=== PATIENT | female | born 1985 | race Caucasian/White ===

== ENCOUNTER → 2019-04-12 16:34 | Outpatient (CLI) | payer OTHER, SELFPAY ==
[2017-06-21 22:37] VITALS: BMI 28.0
[2019-04-15 12:08] LABS: Age Gdln ACOG Testing 30-65 (.)
[2019-04-15 17:00] LABS: HPV APTIMA, High Risk Negative (Negative); HPV Reflexed? YES, CHARGE PATIENT
== END ==
PROVIDERS: Referring Provider Obstetrics & Gynecology; Visit Provider Obstetrics & Gynecology
DX: Z12.4 Encounter for screening for malignant neoplasm of cervix (principal)
CPT/HCPCS: 87624; 88175; G0145

== ENCOUNTER → 2020-07-31 | Outpatient (CLI) | payer OTHER, SELFPAY ==
[2017-06-21 22:37] VITALS: BMI 28.0
[2020-08-04 03:06] LABS: Chlamydia By Nucleic Acid AMP Negative (Negative)
[2020-08-04 09:18] LABS: Gonococcus By Nucleic Acid AMP Negative (Negative)
== END | disposition home or self-care (01) ==
LOC: LABSPEC 14:34
PROVIDERS: Visit Provider Student in an Organized Health Care Education/Training Program
DX: Z32.01 Encounter for pregnancy test, result positive (principal)
CPT/HCPCS: 87491; 87591

== ENCOUNTER → 2020-08-10 14:03 | Outpatient (CLI) | payer OTHER, SELFPAY ==
[2017-06-21 22:37] VITALS: BMI 28.0
[2020-08-10 17:19] LABS: Absolute Lymphocyte Count 1.43 X10^3/uL (0.83-4.51); Basophil# 0.02 X10^3/uL; Basophil% 0.3 % (0-1); Eosinophil# 0.18 X10^3/uL; Eosinophils% 2.3 % (0-5); Hematocrit 41.1 % (37-47); Hemoglobin 13.2 g/dL (12.0-15.0); Lymphocyte # 1.43 X10^3/ul (4.0); Lymphocyte % 17.9 % (19-41); Mean Corp Hgb Conc 32.1 g/dL (32-36); Mean Corpuscular Hgb 28.8 pg (27.0-32.0); Mean Corpuscular Volume 89.5 fL (81-99); Mean Platelet Vol. 10.5 fl (6.2-12.0); Monocyte# 0.39 X10^3/uL; Monocyte% 4.9 % (0-10); NRBC Flagged by Analyzer 0 % (0-5); Neutrophil # 5.96 X10^3/uL (2.7-7.7); Neutrophil % 74.3 % (47-70); Platelet Count 269 K/mm3 (150-450); RBC Distribution Width CV 11.9 % (11.6-14.6); RBC Distribution Width SD 38.7 fl (35.1-43.9); Red Blood Count 4.59 M/mm3 (4.2-5.4)
[2020-08-13 09:14] LABS: HIV - WCH Non-Reactive (Nonreactive); Hepatitis B Surface Antigen Non-Reactive (Nonreactive); Hepatitis C Antibody Non-Reactive (Nonreactive); Rubella IgG Reactive (Nonreactive); Syphilis Antibodies Non-reactive
== END ==
PROVIDERS: Visit Provider Student in an Organized Health Care Education/Training Program
DX: Z34.81 Encounter for supervision of other normal pregnancy, first trimester (principal)
CPT/HCPCS: 36415; 85025; 86703; 86762; 86803; 87086; 87088; 87340

== ENCOUNTER → 2021-01-28 16:40 | Outpatient (CLI) | payer OTHER, SELFPAY ==
[2021-01-28 17:21] LABS: Absolute Lymphocyte Count 1.49 X10^3/uL (0.83-4.51); Absolute Neutrophil Count 7.8 X10^3/uL (2.0-7.7); Basophil# 0.02 X10^3/uL; Basophil% 0.2 % (0-1); Eosinophil# 0.13 X10^3/uL; Eosinophils% 1.3 % (0-5); Hematocrit 39.9 % (37-47); Hemoglobin 13.5 g/dL (12.0-15.0); Lymphocyte # 1.49 X10^3/ul (0.83-4.51); Lymphocyte % 14.8 % (19-41); Mean Corp Hgb Conc 33.8 g/dL (32-36); Mean Corpuscular Hgb 29.4 pg (27.0-32.0); Mean Corpuscular Volume 86.9 fL (81-99); Mean Platelet Vol. 9.6 fl (6.2-12.0); Monocyte# 0.57 X10^3/uL; Monocyte% 5.7 % (0-10); NRBC Flagged by Analyzer 0 % (0-5); Neutrophil # 7.82 X10^3/uL (2.7-7.7); Neutrophil % 77.5 % (47-70); Platelet Count 275 K/mm3 (150-450); RBC Distribution Width SD 38.5 fl (35.1-43.9); Red Blood Count 4.59 M/mm3 (4.2-5.4); White Blood Count 10.1 K/mm3 (4.4-11.0)
[2021-01-29 08:47] LABS: HIV - WCH Non-Reactive (Nonreactive); Hepatitis B Surface Antigen Non-Reactive (Nonreactive); Hepatitis C Antibody Non-Reactive (Nonreactive); Rubella IgG Reactive (Nonreactive); Syphilis Antibodies Non-reactive
[2021-01-31 03:07] LABS: Chlamydia By Nucleic Acid AMP Negative (Negative)
[2021-01-31 09:01] LABS: Gonococcus By Nucleic Acid AMP Negative (Negative)
== END ==
PROVIDERS: Visit Provider Obstetrics & Gynecology
DX: Z32.01 Encounter for pregnancy test, result positive (principal)
CPT/HCPCS: 36415; 85025; 86703; 86762; 86780; 86803; 87077; 87086; 87088; 87340; 87491; 87591

== ENCOUNTER 2021-02-28 09:51 | Emergency (ER) | payer OTHER, SELFPAY ==
[2021-02-28 09:52] VITALS: BP 128/89; PULSE 85; RESP 16; TEMP 36.7; O2SAT 98; BMI 22.8
[2021-02-28 09:55] VITALS: BP 128/89; PULSE 85; RESP 16; TEMP 36.7; O2SAT 98
--- NOTE | 2021-02-28 10:02 | EKG12_ITS ---
Test Reason : CHEST PAIN Blood Pressure : / mmHG Vent. Rate : 081 BPM Atrial Rate : 081 BPM P-R Int : 138 ms QRS Dur : 092 ms QT Int : 362 ms P-R-T Axes : 037 054 022 degrees QTc Int : 420 ms Normal sinus rhythm Normal ECG Confirmed by SALBADOR MONROY, ADITI ([id number]), deputy editor in chief JASPAL COLE ([id number]) on 03/01/2021 10:21:34 A M Referred By: AUNDREA Confirmed By:ULYSSES SIU MD
--- NOTE | 2021-02-28 10:07 | EDS_ITS ---
HPI History of Present Illness Chief Complaint: Chest Pain Informant: patient Onset/Context/Timing Onset: Days Activity at onset: gradual Timing: Intermittent Quality: Positive for Aching Location: Right Parasternal and Left Parasternal Current Severity: Mild Maximum Severity: Mild Worsened By: Nothing Relieved By: Nothing Narrative Narrative: 36-year-old female with factor V Leiden past medical history but is never had a DVT or PE. Currently 3 months due date September 08, 2021. She is Ab1 with a being a miscarriage. She is recently been Covid positive. Has been complaining of chest pain and dizziness. One episode of nausea vomiting last night no diarrhea. No fever no chills. No dysuria. No hemoptysis. Prior Similar Symptoms: No Recent Illness/Hospitalization: No CVD Risk Factors: Negative for Hypertension, Diabetes, Hypercholesterolemia, Family History 1' </=55 and Smoking PE Risk Factors: Negative for Recent Travel/Surgery, Recent Immobilization, Prior DVT or PE, Cancer and OCP + Smoking + >/=35 TAD Risk Factors: Negative for Marfan's Syndrome and Hypertension PFSH PFSH Medical History no medical history Home Medications vit no.[id number] [ One Daily] 1 ea PO DAILY 08/03/15 [History Last Taken 1 Day Ago ~06/20/17] aspirin [Adult Low Dose Aspirin] 81 mg PO DAILY 12/10/15 [History Last Taken 1 Week Ago ~06/14/17] acetaminophen [Tylenol] 325 mg PO Q6H PRN PRN 12/11/15 [History Last Taken 12/10/15 19:00] ibuprofen 800 mg PO TID PRN PRN #30 tab 06/22/17 [Rx Last Taken Unknown] Allergy/AdvReac Type Severity Reaction Status Date / Time No Known Allergies Allergy Verified 02/28/21 09:56 Social History Smoking Status: Never smoker ROS ROS ED ROS Narrative Nausea vomiting x1. Chest pain. Review of Systems ROS Unobtainable: Denies due to encephalopathy Constitutional Constitutional ED: Denies chills or fever(s) Eyes Eyes: Denies none ENT ENT ED: Denies ear pain or sore throat Cardiovascular Cardiovascular: Reports chest pain; Denies palpitations or racing heartbeat Respiratory/Chest Respiratory/Chest: Reports cough; Denies dyspnea Gastrointestinal Gastrointestinal: Reports nausea and vomiting; Denies abdominal pain or diarrhea Genitourinary Genitourinary ED: Denies dysuria or hematuria Musculoskeletal Musculoskeletal: Denies myalgias Integumentary Denies rash Neurologic Neurologic: Denies headache(s) Psychiatric Psychiatric: Denies depression Endocrine Endocrinology: Denies polyuria Hematologic/Lymphatic Hematologic/Lymphatic: Denies easy bruising Allergic/Immunologic Allergic/Immunologic ED: Denies urticaria EXAM Physical Exam Narrative Exam Narrative: 36-year-old female no acute distress vital signs stable afebrile. Pulse ox 98% on room air no signs hypoxia. Exam benign. Lungs are clear to auscultation. Heart regular rhythm no murmur. Abdomen soft nontender. Moving all 4 extremities. Calves nontender without edema or cords. Const Vital Signs: 02/28/21 09:52 02/28/21 09:55 02/28/21 10:33 Temperature 98.1 F 98.1 F Temperature Source Temporal Temporal Pulse Rate 85 85 Respiratory Rate 16 16 Respiratory Effort Normal Non-Labored Blood Pressure 128/89 H 128/89 H Blood Pressure Mean 102 102 Pulse Ox 98 98 Oxygen Delivery Method Room Air Room Air 02/28/21 11:23 Temperature 98.3 F Temperature Source Temporal Pulse Rate 69 Respiratory Rate 14 Respiratory Effort Blood Pressure 106/72 Blood Pressure Mean 83 Pulse Ox 97 Oxygen Delivery Method Room Air Positive well nourished and well developed; Negative for obese, cachectic, contractures or unkempt General Appearance ED: well developed and NAD; Negative for unkempt, cachectic or contractures Nutritional Appearance: Negative for cachectic or obese HEENT Reports moist mucous membranes normocephalic and atraumatic; Negative for trauma or tenderness Eyes PERRL and EOMs intact bilaterally Neck no lymphadenopathy, supple and no JVD General: Negative for tenderness Chest Wall inspection of chest normal and palpation of chest normal Resp normal respiratory effort and clear to auscultation bilaterally Effort and Inspection: respiratory distress Auscultation: Negative for rales, rhonchi or wheezes Cardio regular rate, regular rhythm, S1 normal heart sound and S2 normal heart sound Rate: Negative for tachycardic GI normal to inspection, nondistended, normoactive bowel sounds, soft to palpation and non-tender; Negative for no masses Back/Spine no CVA tenderness and no thoracic nor lumbar tenderness General Back: Negative for CVA tenderness Extremity normal to inspection General Extremety ED: Negative for edema, pulses abnormal or tenderness General Extremity: Negative for edema or pulses abnormal Neuro oriented x3 and CN's II-XII intact bilaterally Sensorium / Orientation: awake, alert, oriented to person, oriented to place and oriented to time Motor Exam: strength 5/5 throughout Psych mental status grossly normal Appearance: Negative for unkempt Attitude: No agitated Mood & Affect: Negative for depressed, anxious or tearful Skin no rashes or lesions noted and no wounds Heart Score History: Slightly/Non-Suspicious ECG: Normal Age: </= 45 years Risk Factors: No Risk Factors Troponin: </= Normal Limit Score: 0 MDM MDM MDM Narrative Medical decision making narrative: Young female, Covid positive and factor V Leiden history currently not on anticoagulation with diffuse chest pain. D-dimer and lab work-up. EKG is unremarkable. Repeat exam patient is doing well at 1140 and will be discharged home. I think her symptoms are primarily from her Covid. Lab Data Attestation: I reviewed the patient's lab results. Lab results narrative: CBC shows a white count of 5 hemoglobin 13. D-dimer is - 0.39 electrolytes show a gap of 5 normal creatinine. Labs: Laboratory Results - last 24 hr 02/28/21 02/28/21 02/28/21 10:30 10:30 10:30 WBC 5.6 RBC 4.30 Hgb 13.0 Hct 37.0 MCV 86.0 MCH 30.2 MCHC 35.1 RDW Std Deviation 37.8 RDW Coeff of Aldo 12.1 Plt Count 189 MPV 9.4 Immature Gran % (Auto) 0.200 Neut % (Auto) 72.7 H Lymph % (Auto) 20.1 [place] % (Auto) 5.9 Eos % (Auto) 0.9 Baso % (Auto) 0.2 Absolute Neuts (auto) 4.1 Absolute Lymphs (auto) 1.12 Nucleated RBC % 0 D-Dimer Quant (PE/DVT) 0.39 Sodium 137 Potassium 3.5 Chloride 109 H Carbon Dioxide 23.0 Anion Gap 5 BUN 8 Creatinine 0.42 L Estim Creat Clear Calc 197.24 Est GFR (MDRD) Af Amer 222 Est GFR (MDRD) Non-Af 184 BUN/Creatinine Ratio 19.0 Glucose 106 Calcium 8.5 Radiography Chest X-Ray - ED: 1 View, Read by ED Physician, Read by Radiologist, Normal, Heart, Lungs, Mediastinum, Bony Structures and No Acute Disease Diagnostic Testing: Radiology Impression Chest X-Ray 02/28/21 10:15 IMPRESSION: Normal x-ray examination of the chest. Electronically Signed: Damon Cortes MD at 10:48 EDT , Service support , Portable chest x-ray interpreted by myself and the radiologist as normal. Normal cardiac silhouette mediastinum. Rhythm Strip Rhythm Strip: Sinus Rhythm Rate: 81 Ectopy: None EKG Initial EKG: Attestation: I personally reviewed and interpreted this EKG as follows: Interpretation: Sinus Rhythm and No Acute Injury Pattern Comments: Normal sinus rhythm rate of 81 no acute signs of MA or ischemia. Discharge Plan Triage Chief Complaint: Chest Pain ED Provider: Enoch Vallecillo Dx/Rx/DC Orders Clinical Impression: COVID-19 Instructions: Human Coronaviruses Prescriptions: No Action vit no.[id number] [ One Daily] 1 EACH tablet 1 ea PO DAILY RF: 0 aspirin [Adult Low Dose Aspirin] 81 MG Tablet.Dr 81 mg PO DAILY RF: 0 acetaminophen [Tylenol] 325 MG tablet 325 mg PO Q6H PRN PRN (Reason: Pain) RF: 0 ibuprofen 800 MG tablet 800 mg PO TID PRN PRN (Reason: pain or cramping) Qty: 30 RF: 1 Primary Care Provider: Care Physician,No Primary Referrals: Pepe Webster MD [STAFF PHYSICIAN] - Keep Franky appointment Care Physician,No Primary [Primary Care Provider] - Activity Restrictions/Additional Instructions: Tylenol for pain. Plenty of fluids and rest. Make sure you follow-up with your DIRECTOR OF ACQUISITION MARKETING. Make sure you get your anticoagulation Lovenox filled and take it as prescribed. Disposition Disposition: Home, Self Care
--- NOTE | 2021-02-28 10:15 | RAD_ITS ---
STUDY: X-RAY CHEST REASON FOR EXAM: Female, 36 years old. covid . Left-sided chest pain. TECHNIQUE: Single AP portable view of the chest. COMPARISON: None. FINDINGS: The lungs are clear and expanded. There is no demonstrated pleural abnormality. Normal size heart. Normal mediastinum and jim. Normal visualized pulmonary arteries. Normal visualized aortic arch and descending thoracic aorta. Normal visualized thoracic spine. Normal visualized ribs, clavicles, and shoulders. There is no demonstrated abnormality of the visualized soft tissue structures of the upper abdomen. RAD/Chest 1 View (Portable) IMPRESSION: Normal x-ray examination of the chest. Electronically Signed: Damon Cortes MD at 10:48 EDT , Service support ,
[2021-02-28 10:38] LABS: Absolute Lymphocyte Count 1.12 X10^3/uL (0.83-4.51); Absolute Neutrophil Count 4.1 X10^3/uL (2.0-7.7); Basophil# 0.01 X10^3/uL; Basophil% 0.2 % (0-1); Eosinophil# 0.05 X10^3/uL; Eosinophils% 0.9 % (0-5); Lymphocyte # 1.12 X10^3/ul (0.83-4.51); Lymphocyte % 20.1 % (19-41); Mean Corp Hgb Conc 35.1 g/dL (32-36); Mean Corpuscular Hgb 30.2 pg (27.0-32.0); Mean Platelet Vol. 9.4 fl (6.2-12.0); Monocyte# 0.33 X10^3/uL; Monocyte% 5.9 % (0-10); NRBC Flagged by Analyzer 0 % (0-5); Neutrophil # 4.06 X10^3/uL (2.7-7.7); Neutrophil % 72.7 % (47-70); Platelet Count 189 K/mm3 (150-450); RBC Distribution Width CV 12.1 % (11.6-14.6); RBC Distribution Width SD 37.8 fl (35.1-43.9); White Blood Count 5.6 K/mm3 (4.4-11.0)
[2021-02-28 10:52] LABS: Anion Gap 5 (5-15); BUN 8 mg/dL (7-18); Calcium,Total 8.5 mg/dL (8.5-10.1); Chloride 109 mmol/L (98-107); Creatinine, Serum 0.42 mg/dL (0.55-1.02); EST Glomerular Filtration Rate 184 mL/min (>60); Est Glom Filt Rate - Afr Amer 222 mL/min (>60); Estimated Creatinine Clearance 197.24 ml/min; Glucose 106 mg/dL (74-106); Potassium 3.5 mmol/L (3.5-5.1); Sodium Level 137 mmol/L (136-145)
[2021-02-28 11:00] LABS: D-Dimer Quantitative (DVT/PE) 0.39 FEU/ug/m (0.27-0.49)
[2021-02-28 11:23] VITALS: BP 106/72; PULSE 69; RESP 14; TEMP 36.8; O2SAT 97
[2021-02-28 11:50] VITALS: BP 111/67; O2SAT 99
== END 2021-02-28 12:07 | disposition home or self-care (01) ==
PROVIDERS: Emergency Provider Emergency Medicine
DX: O98.519 Other viral diseases complicating pregnancy, unspecified trimester (principal); U07.1 COVID-19; Z3A.00 Weeks of gestation of pregnancy not specified
CPT/HCPCS: 71045; 80048; 85025; 85379; 93005; 99283

== ENCOUNTER → 2021-05-24 10:07 | Outpatient (CLI) | payer OTHER, SELFPAY ==
[2021-05-24 10:50] LABS: Hemoglobin 11.5 g/dL (12.0-15.0); Mean Corp Hgb Conc 32.9 g/dL (32-36); Mean Corpuscular Hgb 30.5 pg (27.0-32.0); Mean Corpuscular Volume 92.8 fL (81-99); Platelet Count 222 K/mm3 (150-450); RBC Distribution Width CV 13.5 % (11.6-14.6); RBC Distribution Width SD 46.5 fl (35.1-43.9); Red Blood Count 3.77 M/mm3 (4.2-5.4); White Blood Count 9.3 K/mm3 (4.4-11.0)
[2021-05-24 10:56] LABS: Glucose Challenge Gest 1H 50g 131 mg/dL (70-140)
== END ==
PROVIDERS: Visit Provider Obstetrics & Gynecology
DX: Z34.82 Encounter for supervision of other normal pregnancy, second trimester (principal)
CPT/HCPCS: 36415; 82950; 85027

== ENCOUNTER 2021-06-18 11:28 | Outpatient (CLI) | payer OTHER, SELFPAY | END 2021-06-18 23:59 | disposition short-term general hospital (02) | LOC: WOBLAB 11:33 | PROVIDERS: Visit Provider Obstetrics & Gynecology | DX: Z67.91 Unspecified blood type, Rh negative (principal) | CPT/HCPCS: 36415; 86850 ==

== ENCOUNTER 2021-08-05 11:00 | Outpatient (CLI) | payer OTHER, SELFPAY | END 2021-08-05 23:59 | disposition home or self-care (01) | LOC: LABSPEC 11:01 | PROVIDERS: Visit Provider Obstetrics & Gynecology | DX: Z36.85 Encounter for antenatal screening for Streptococcus B (principal) | CPT/HCPCS: 87081 ==

== ENCOUNTER 2021-09-12 07:30 | Inpatient (IN) | payer OTHER, SELFPAY ==
[2021-09-12] VITALS (40 sets, daily range): BP systolic 104–155; BP diastolic 63–92; PULSE 65–190; RESP 16; TEMP 36.3–36.8; O2SAT 83–100; BMI 29.6
--- NOTE | 2021-09-12 | PLAC_PTH ---
PATIENT: GAVI BUTT LOC: [facility] U#:[id number] AGE/SX: 36/F ROOM: WP006 RE09/12/[address]: Dr. Pepe Webster MD : 1985 BED: 1 DIS: 09/13/2021 SPEC #: [id number] RECD: 09/12/21 18:03 STATUS: [place] REKristi #: [id number] ASIM: 09/12/21 00:[address]: Pepe Webster DEPT: SURGICAL PATHOLOGY RECD BY: Jace Nuñez ENTERED: 09/13/21 10:36 SP TYPE: PLACENTA OTHR DR: No Primary Care Phys Tissues: Placenta, NOS Procedures: Surgery Specimen Level V HEADER OPERATION: Vaginal delivery PRE-OP DIAGNOSIS: Induction TISSUE SUBMITTED: Placenta MICROSCOPIC DIAGNOSIS Whitt placenta (608 gm): Umbilical cord ? trivascular with no inflammation. Placental membranes - No pathologic change. Placental disc ? remote infarcts, Eladia-Rakesh change and intervillous congestion. AM:imani 09/17/2021 MICROSCOPIC DESCRIPTION Slides are reviewed. GROSS DESCRIPTION SPECIMEN: PLACENTA / CLINICAL INFORMATION: A. Weight: 4.195 kg B. Gestational Age: 41 weeks C. Sex: Female PLACENTAL WEIGHT (POST FIXATION): 608 gm PLACENTAL DIMENSIONS: 17 x 17 x 3 cm PLACENTAL SHAPE: Usual ovoid PLACENTAL WEIGHT FOR GESTATIONAL AGE: Over 99th percentile MEMBRANES - Present A. Insertion: Marginal B. Site of rupture from edge: At edge of placental disc C. Color of membrane: Cotton-obando D. Abnormalities: None UMBILICAL CORD - Present A. Color: Cotton-obando B. Insertion: Eccentric C. Length: 48 cm D. Diameter: 1.2 cm E. Number of vessels: Three F. Abnormalities: None PLACENTAL DISC - Present A. Color of surface: Cotton-obando B. surface abnormalities: None C. Maternal cotyledons: Intact with minimal tears D. Attached retro placental clot: No clot E. Cut surface: Dark red and spongy F. Lesions: Two lesions, one at 10 cm G. Separate clot: Absent SECTIONS SUBMITTED: 1. Umbilical cord ( end notched) 2. Umbilical cord, placental end 3. Membrane roll 4. Placental disc, and maternal surfaces, lesions 5. Placental disc, and maternal surfaces 6. Placental disc, and maternal surfaces AM:imani 09/16/2021 TC:5 CPT: 64134
[2021-09-12 08:18] LABS: Absolute Lymphocyte Count 1.28 X10^3/uL (0.83-4.51); Absolute Neutrophil Count 8.3 X10^3/uL (2.0-7.7); Basophil# 0.02 X10^3/uL; Basophil% 0.2 % (0-1); Eosinophil# 0.09 X10^3/uL; Eosinophils% 0.9 % (0-5); Hematocrit 37.3 % (37-47); Lymphocyte # 1.28 X10^3/ul (0.83-4.51); Lymphocyte % 12.5 % (19-41); Mean Corp Hgb Conc 34.9 g/dL (32-36); Mean Corpuscular Hgb 31.6 pg (27.0-32.0); Mean Corpuscular Volume 90.5 fL (81-99); Mean Platelet Vol. 11.2 fl (6.2-12.0); Monocyte# 0.48 X10^3/uL; Monocyte% 4.7 % (0-10); NRBC Flagged by Analyzer 0 % (0-5); Neutrophil # 8.32 X10^3/uL (2.7-7.7); Platelet Count 186 K/mm3 (150-450); RBC Distribution Width CV 13.2 % (11.6-14.6); RBC Distribution Width SD 43.1 fl (35.1-43.9); Red Blood Count 4.12 M/mm3 (4.2-5.4); White Blood Count 10.3 K/mm3 (4.4-11.0)
[2021-09-12] MEDS: Oxytocin 30 units/NS 500 ml 30 UNITS/500 ML IV.SOLN IV (08:26)
[2021-09-12] MEDS: Lactated Ringers 1,000 ML 50 ML IV (08:27)
--- NOTE | 2021-09-12 13:04 | PCM.HP.BLA ---
History and Physical Date of Admission: 09/12/21 Chief complaint: Induction of labor postdates History present illness: 36-year-old G4, P2 at 41 weeks and 5 days with RACHELLE 08/31/2021 arrives for induction of labor postdates. Denies headache, visual changes, chest pain, shortness of breath, nausea vomiting, right upper quadrant pain. Patient states good movement. is complicated by factor V heterozygous has not been taking Lovenox, Rh- Obstetric history: G1: female G2: male G3: SAB G4: Current Past medical history: Factor V heterozygous Medications: vitamin Past surgical history: D&C Social history: Denies smoking, alcohol use, drug use Review of systems: Besides above pertinent positives a full review of systems was performed and found to be negative Physical exam: Blood pressure 133/86 pulse 67 General: Normal-appearing no acute distress none HEENT: Normocephalic/atraumatic no cervical adenopathy Cardiac/respiratory: No success muscles, nonlabored breathing Abdomen: Soft, nontender, gravid Cervical exam: 360/-3 AROM clear fluid Extremities: No peripheral edema normal peripheral pulses Psych: Normal affect normal demeanor nonpressured speech Labs: White blood cell count 10.3 hemoglobin 13.0 hematocrit 37.3% platelets 186 blood type A- antibody negative Assessment plan: 36-year-old G4, P2 at 41 weeks and 5 days induction of labor postdates Admit labor and delivery 9 CFM GBS negative Pitocin and AROM induction Factor V heterozygous: Patient has refused Lovenox throughout this , will rediscuss for Rh-
[2021-09-12] MEDS: fentaNYL 100 MCG/2 ML Ampul IV (15:05)
[2021-09-12] MEDS: Lactated Ringers 500 ML 999 ML IV (15:32)
[2021-09-12] MEDS: fentaNYL-bupivacaine (epidural) 100 ML BAG EPIDURAL (16:08)
[2021-09-12] MEDS: Oxytocin 30 units/NS 500 ml 30 UNITS/500 ML IV.SOLN 334 UNITS IV (16:55)
--- NOTE | 2021-09-12 17:10 | EX.PCM.OBRPT ---
Vaginal Delivery Findings Description of Procedure: Normal spontaneous delivery of a viable female infant, cephalic. Head and shoulders delivered with ease. Cord cut and clamped x 2. Baby handed off to nursing. Placenta delivered via cord traction and fundal message. No lacerations noted. EBL 300cc APGARs 8/9
[2021-09-12 18:05] LABS: Pathology Specimen OB SEE PATHOLOGY REPORT
--- NOTE | 2021-09-12 19:33 | NURSING ---
Pt epidural cath removed. blue tip intact.
[2021-09-12] MEDS: Acetaminophen 500 MG Tablet 1000 MG PO (21:16)
[2021-09-13 00:10] VITALS: BP 127/74; PULSE 77; RESP 16; TEMP 36.8
[2021-09-13] MEDS: Ibuprofen 600 MG Tablet PO ×2 (02:16→11:38)
[2021-09-13 04:30] VITALS: BP 116/77; PULSE 74; RESP 16; TEMP 36.7
--- NOTE | 2021-09-13 07:27 | PCM.DC ---
Discharge Instructions Diet Discharge Diet: No restrictions Activity Discharge Activity: Return to Normal Activity, May Drive and May Shower May resume sexual activity in: 4-6 weeks Weight Bearing Status: Weight bearing as tolerated Dressing / Incision Call your doctor if your incision/area has: Continuous Slow Oozing and Foul Smelling Discharge Call your doctor if you observe: Fever of 101 or Higher, Shortness of breath and Chest pain Follow Up Care Please Follow Up With: Pepe Webster MD When: 2-week telehealth, 4 to 6 weeks Test Results: Test results from this visit will be discussed in further detail at your follow-up appointment, if applicable. Discharge Plan Admission Admit Date/Time: 09/12/21 07:30 Attending Provider: Pepe Webster Primary Care Provider: Care Physician,Bessy Primary Discharge Orders/Prescriptions Prescriptions: No Action One Daily 1 EACH tablet 1 ea PO DAILY RF: 0 acetaminophen [Tylenol] 325 MG tablet 325 mg PO Q6H PRN PRN (Reason: Pain) RF: 0 ibuprofen 800 MG tablet 800 mg PO TID PRN PRN (Reason: pain or cramping) Qty: 30 RF: 1 Disposition Discharge Orders: Discharge Patient (Routine); Ordered 09/13/21 Ordered By: Dr. Pepe Webster
--- NOTE | 2021-09-13 07:28 | PCM.PN.OB ---
Subjective Subjective No overnight complaints Objective Data Objective Data Vital Signs: Vital Signs Temp Pulse Resp BP Pulse Ox 98.0 F 74 16 116/77 96 09/13/21 04:30 09/13/21 04:30 09/13/21 04:30 09/13/21 04:30 09/12/21 21:15 Oxygen Delivery Method Room Air Weight: 200 lb 9.93 oz Body Mass Index (BMI) 29.6 Intake & Output: Intake and Output for Last 24 Hours 09/11/21 09/12/21 09/13/21 23:59 23:59 23:59 Intake Total 1476.90 / 1476.90 Output Total 2600 / 2600 Balance -1123.10 / -1123.10 Lab / Micro Data Result Diagrams: 09/12/21 08:00 Labs: Laboratory Results - last 24 hr 09/12/21 08:00: WBC 10.3, RBC 4.12 L, Hgb 13.0, Hct 37.3, MCV 90.5, MCH 31.6, MCHC 34.9, RDW Std Deviation 43.1, RDW Coeff of Aldo 13.2, Plt Count 186, MPV 11.2, Immature Gran % (Auto) 0.700, Neut % (Auto) 81.0 H, Lymph % (Auto) 12.5 L, [place] % (Auto) 4.7, Eos % (Auto) 0.9, Baso % (Auto) 0.2, Absolute Neuts (auto) 8.3 H, Absolute Lymphs (auto) 1.28, Nucleated RBC % 0 09/12/21 08:00: Blood Type A NEGATIVE, Antibody Screen NEGATIVE Micro: Microbiology 09/12/21 07:50 Nasal Secretion SARS-CoV-2 Antigen (Rapid) - Final Physical Exam Const alert, oriented x3, no apparent distress, average body habitus, healthy appearing and well nourished HEENT normocephalic Head and Scalp: atraumatic Resp normal respiratory effort, no retractions and no use of accessory muscles Extremity normal to inspection, full ROM and no clubbing, cyanosis or edema Psych mental status grossly normal, affect normal, speech normal and activity/motor behavior normal Assessment & Plan (1) Vaginal delivery: PLAN: day 1. Breast-feeding. Pain well controlled. Okay to discharge home today if okay with clinical practitioner
[2021-09-13] MEDS: Acetaminophen 500 MG Tablet 1000 MG PO (07:57)
[2021-09-13 08:08] VITALS: BP 126/86; PULSE 84; RESP 16; TEMP 36.7; O2SAT 99
[2021-09-13 11:45] VITALS: BP 130/82; PULSE 72; RESP 16; TEMP 37.1; O2SAT 98
[2021-09-13 14:00] VITALS: BP 133/75; PULSE 68; RESP 14; TEMP 36.6; O2SAT 97
--- NOTE | 2021-09-13 19:36 | NURSING ---
this RN has reviewed and agrees with charting completed by ramiro Morales RN
== END 2021-09-13 19:10 | disposition home or self-care (01) | DRG 806 ==
PROVIDERS: Admitting Provider Obstetrics & Gynecology; Visit Provider Obstetrics & Gynecology
DX: O48.0 Post-term pregnancy (principal); Z37.0 Single live birth; D68.2 Hereditary deficiency of other clotting factors; O99.12 Other diseases of the blood and blood-forming organs and certain disorders involving the immune mechanism complicating childbirth; Z3A.41 41 weeks gestation of pregnancy
CPT/HCPCS: 59025; 59050; 85025; 86850; 86900; 86901; 87426; 88307; 99218; J7120; G0378

== ENCOUNTER 2021-09-26 10:42 | Emergency (ER) | payer OTHER, SELFPAY ==
[2021-09-26] VITALS (7 sets, daily range): BP systolic 120–139; BP diastolic 81–106; PULSE 62–88; RESP 16–17; TEMP 36.6; O2SAT 94–97; BMI 24.9
--- NOTE | 2021-09-26 10:54 | EDS_ITS ---
HPI History of Present Illness Chief Complaint: Upper Extremity Injury Detail of Chief Complaint: Right shoulder injury Informant: patient Narrative Narrative: Patient presents to the emergency department complaint of pain to the right shoulder. Patient states that she thinks she dislocated. Patient states she is dislocated for 5 other times but the last time was about 4 5 years ago. Patient states that she was getting into her car and threw a bag and in the passenger seat and that is the motion that caused the shoulder to pop out of place. Patient is right-hand dominant. [facility] Medical History (Updated 09/26/21 @ 12:[address] Hever Santos, DO) Factor V deficiency Home Medications One Daily 1 ea PO DAILY 08/03/15 [History Last Taken 09/12/21 0600] acetaminophen [Tylenol] 325 mg PO Q6H PRN PRN 12/11/15 [History Last Taken 12/10/15 19:00] ibuprofen 800 mg PO TID PRN PRN #30 tab 06/22/17 [Rx Last Taken Unknown] Allergy/AdvReac Type Severity Reaction Status Date / Time No Known Allergies Allergy Verified 09/26/21 10:42 Social History Smoking Status: Never smoker ROS ROS ED Constitutional Constitutional ED: Reports systems reviewed and no addt'l complaints, except as documented; Denies body ache(s), change in weight or chills Eyes Eyes: Denies acute decrease in peripheral vision, change in vision, double vision or loss of vision ENT ENT ED: Reports none; Denies ear pain, lip swelling, loss taste/smell, neck pain, otalgia or sore throat Cardiovascular Cardiovascular: Reports none; Denies abdominal pain, chest pain with activity, leg edema, lightheadedness, palpitations, rapid heart rate or syncope Respiratory/Chest Respiratory/Chest: Reports none; Denies change in mental status, dry cough, dyspnea, hemoptysis, shortness of breath at rest or shortness of breath with exertion Gastrointestinal Gastrointestinal: Reports none; Denies abdominal pain, change in stool character, diarrhea, hematemesis, hematochezia, melena, rectal bleeding or vomiting Genitourinary Genitourinary ED: Reports none; Denies abdominal discomfort, anuria, dysuria, genital pain or polyuria Musculoskeletal Musculoskeletal: Reports none and other Details: Right shoulder pain ; Denies arthralgias, back pain, difficulty walking, extremity pain, muscle weakness or myalgias Integumentary Reports none; Denies abscess or rash Neurologic Neurologic: Reports none; Denies abnormal gait, confusion, focal weakness, frequent falls, headache(s), loss of vision, numbness, paresthesias, radicular pain, vertigo or weakness Psychiatric Psychiatric: Reports systems reviewed and no addt'l complaints, except as documented and none; Denies behavioral changes, confusion, difficulty concentrating, hallucinations, suicidal ideation, tactile hallucinations or visual hallucinations Endocrine Endocrinology: Denies none, cold intolerance, excessive sweating, fatigue or heat intolerance Hematologic/Lymphatic Hematologic/Lymphatic: Reports none; Denies anemia, easy bleeding or easy bruising Allergic/Immunologic Allergic/Immunologic ED: Denies as per HPI, none, lip swelling, mouth swelling, throat swelling, tongue swelling or hives EXAM Physical Exam Const Vital Signs: 09/26/21 10:44 Temperature 97.8 F Temperature Source Temporal Pulse Rate 88 Respiratory Rate 17 Blood Pressure 135/106 H Blood Pressure Mean 115 Pulse Ox 96 Oxygen Delivery Method Room Air Positive well nourished and well developed General Appearance ED: well developed and NAD HEENT Reports TM's clear and moist mucous membranes normocephalic and atraumatic; Negative for trauma or tenderness Tympanic Membrane ED: Yes TM's clear Eyes PERRL and EOMs intact bilaterally General Eye ED: Negative for pale conjunctiva or scleral icterus Neck no lymphadenopathy, supple and no JVD General: Negative for tenderness Chest Wall inspection of chest normal and palpation of chest normal Chest: Negative for tenderness Resp normal respiratory effort and clear to auscultation bilaterally Effort and Inspection: Negative for respiratory distress or pain with movement Auscultation: Negative for rhonchi, wheezes or diminished lung sounds Cardio regular rate, regular rhythm, S1 normal heart sound, S2 normal heart sound and no murmurs Peripheral Pulses: pulses 2+ throughout GI normal to inspection, nondistended, normoactive bowel sounds, soft to palpation, non-tender, non-distended and no masses Back/Spine no CVA tenderness and no thoracic nor lumbar tenderness Extremity Extremity Narrative: Patient with obvious sulcus sign at the right glenohumeral joint with fullness anterior chest wall. Limited range of motion at the shoulder. Neurovascular intact distally. Clinically suspect anterior dislocation General Extremety ED: Negative for edema General Extremity: Negative for edema Neuro oriented x3, CN's II-XII intact bilaterally, no sensory deficits noted and gait normal Sensorium / Orientation: awake, alert, oriented to person, oriented to place and oriented to time Motor Exam: strength 5/5 throughout and strength abnormal Psych mental status grossly normal Skin no rashes or lesions noted and no wounds MDM MDM MDM Narrative Medical decision making narrative: Initially patient wanted to have attempted reduction without any sedation or pain medication. I attempted to reduce the shoulder by applying pressure into the axilla and downward pressure on the elbow however patient did not tolerate well. She did and did asked that we sedate her. She had an IV line established and she was given propofol total of 180 mg with good sedation. We were then able to easily reduce the shoulder with minimal traction. Patient was placed in a sling. She will be referred to orthopedics for follow-up. Procedural sedation time of 20 minutes Lab Data Attestation: I reviewed the patient's lab results. Radiography Diagnostic Testin view x-rays of right shoulder obtained initially noted an anterior dislocation on my interpretation. Radiology was in agreement. 2 view x-rays postreduction obtained interpreted by myself as good reduction of the prior dislocation. Radiology was in agreement. Discharge Plan Triage Chief Complaint: Upper Extremity Injury ED Provider: Hever Santos Dx/Rx/DC Orders Clinical Impression: Anterior dislocation of right shoulder Instructions: ED Dislocation: Shoulder (Reduced) Prescriptions: No Action One Daily 1 EACH tablet 1 ea PO DAILY RF: 0 acetaminophen [Tylenol] 325 MG tablet 325 mg PO Q6H PRN PRN (Reason: Pain) RF: 0 ibuprofen 800 MG tablet 800 mg PO TID PRN PRN (Reason: pain or cramping) Qty: 30 RF: 1 Primary Care Provider: Care Physician,No Primary Referrals: Huey Abdi MD [STAFF PHYSICIAN] - 3-5 Days Care Physician,No Primary [Primary Care Provider] - Disposition Disposition: Home, Self Care
--- NOTE | 2021-09-26 11:12 | RAD_ITS ---
INDICATION: disslocation EXAMINATION/TECHNIQUE: X-RAY - RIGHT XR Shoulder Min 2 Views 2 VIEWS COMPARISON: 02/28/2021. FINDINGS: Subcoracoid anterior dislocation of the right humeral head No evidence of cortical irregularity subtle lucencies suggest a fracture, no evidence of physical sclerotic bone lesion is seen. No soft tissue swelling or gas. No radiopaque foreign body. RAD/Shoulder min 2 Views IMPRESSION: Subcoracoid anterior dislocation of the right humeral head Electronically Signed: Genaro Dc MD at 11:26 EDT ,
[2021-09-26] MEDS: Propofol 200 MG/20 ML Vial IV BOLUS (11:40)
--- NOTE | 2021-09-26 11:45 | RAD_ITS ---
INDICATION: post reduction EXAMINATION/TECHNIQUE: X-RAY - RIGHT XR Shoulder Min 2 Views 2 VIEWS COMPARISON: Right shoulder x-ray obtained the same day. FINDINGS: There has been interval reduction of the previously visualized anterior subcoracoid dislocation. No evidence of cortical irregularities or lucencies to suggest a fracture, no evidence of lytic or sclerotic bone lesion is seen. The overlying soft tissues demonstrate no abnormal densities. The underlying right lung demonstrates no evidence of parenchymal contusions or pneumothorax. Some of pleural effusion is seen. RAD/Shoulder min 2 Views IMPRESSION: Reduction of the previously visualized subcoracoid anterior dislocation, no evidence of acute osseous abnormality seen Electronically Signed: Genaro Dc MD at 12:01 EDT ,
== END 2021-09-26 12:15 | disposition home or self-care (01) ==
PROVIDERS: Emergency Provider Emergency Medicine; Visit Provider Emergency Medicine
DX: S43.014A Anterior dislocation of right humerus, initial encounter (principal); D68.2 Hereditary deficiency of other clotting factors; X50.1XXA Overexertion from prolonged static or awkward postures, initial encounter
CPT/HCPCS: 23650; 73030; 99284

== ENCOUNTER → 2022-04-18 | Outpatient (CLI) | payer OTHER, SELFPAY ==
[2022-04-25 20:28] LABS: HPV APTIMA, High Risk Negative (Negative)
== END | disposition home or self-care (01) ==
LOC: LABSPEC 10:34
PROVIDERS: Visit Provider Obstetrics & Gynecology
DX: Z12.4 Encounter for screening for malignant neoplasm of cervix (principal)
CPT/HCPCS: 87624; 88175; G0145

== ENCOUNTER → 2024-08-26 | Outpatient (CLI) | payer OTHER, SELFPAY ==
[2024-08-26 13:04] LABS: International Normalized Ratio 1.1
[2024-08-26 13:06] LABS: Partial Thromboplast Time 29.8 Seconds (24.1-36.2)
[2024-08-26 13:12] LABS: Absolute Lymphocyte Count 0.95 X10^3/uL (0.83-4.51); Absolute Neutrophil Count 5.3 X10^3/uL (2.0-7.7); Basophil# 0.02 X10^3/uL; Basophil% 0.3 % (0-1); Eosinophil# 0.17 X10^3/uL; Eosinophils% 2.5 % (0-5); Hematocrit 43.2 % (37-47); Hemoglobin 14.3 g/dL (12.0-15.0); Lymphocyte # 0.95 X10^3/ul (0.83-4.51); Mean Corp Hgb Conc 33.1 g/dL (32-36); Mean Corpuscular Hgb 30.1 pg (27.0-32.0); Mean Corpuscular Volume 90.9 fL (81-99); Monocyte# 0.31 X10^3/uL; Monocyte% 4.6 % (0-10); NRBC Flagged by Analyzer 0 % (0-5); Neutrophil % 78.3 % (47-70); Platelet Count 234 K/mm3 (150-450); RBC Distribution Width CV 12.5 % (11.6-14.6); RBC Distribution Width SD 41.5 fl (35.1-43.9); Red Blood Count 4.75 M/mm3 (4.2-5.4); White Blood Count 6.8 K/mm3 (4.4-11.0)
[2024-08-26 13:23] LABS: ALB/GLOB Ratio 1.8 RATIO (0.9-2.4); AST(SGOT) 19 U/L (<=31); Alanine Aminotransfer ALT/SGPT 15 U/L (<=34); Albumin, Serum 4.1 g/dL (3.5-5.0); Alkaline Phosphatase 54 U/L (35-104); Anion Gap 9 (5-15); BUN 18 mg/dL (4-19); BUN/Creat Ratio 25.4 RATIO (10-20); Chloride 106 mmol/L (98-108); Creatinine, Serum 0.69 mg/dL (0.70-1.20); EST Glomerular Filtration Rate 114 (>60); Globulin 2.3 g/dL (2.2-4.2); Glucose 80 mg/dL (70-99); Potassium 4.2 mmol/L (3.3-5.1); Protein, Total 6.4 g/dL (5.9-8.4); Sodium Level 140 mmol/L (133-145); Total Bilirubin 0.65 mg/dL (0.00-1.30)
[2024-08-26 13:32] LABS: Vitamin D,25 Hydroxy 49.3 ng/mL (30-100)
== END | disposition home or self-care (01) ==
LOC: BFHLAB 08:45
PROVIDERS: PCP Nurse Practitioner Family; Visit Provider Nurse Practitioner Family
DX: Z01.818 Encounter for other preprocedural examination (principal); E55.9 Vitamin D deficiency, unspecified
CPT/HCPCS: 36415; 80053; 82306; 85025; 85610; 85730